=== PATIENT | female | born 2000 | race Hispanic/Latino ===

== ENCOUNTER 2019-03-31 09:28 | Emergency (ER) | payer OTHER ==
[~2019-03-31] VITALS: Ht 154.9 cm; Wt 69.0 kg
[2019-03-31] MEDS ORDERED: APIDRA SOL100 UNIT/1 SUB-Q (09:53)
[2019-03-31] MEDS ORDERED: ZOFRAN4 MG PO (12:01)
== END 2019-03-31 12:25 | disposition home or self-care (01) ==
LOC: ED 09:28
DX: O99.341 Other mental disorders complicating pregnancy, first trimester (principal); F07.81 Postconcussional syndrome; E10.9 Type 1 diabetes mellitus without complications; Z3A.01 Less than 8 weeks gestation of pregnancy
CPT/HCPCS: 99283